=== PATIENT | female | born 1995 | race Caucasian/White ===

== ENCOUNTER 2020-05-25 13:29 | Emergency (ER) | payer SELFPAY ==
[2020-05-25 13:36] VITALS: BMI 39.4
[2020-05-25] MEDS ORDERED: SODIUM CHLORIDE 1,000 ML IV STA (14:28)
[2020-05-25] MEDS ORDERED: ONDANSETRON 4 MG/2 ML VIAL IVPUSH ONE (14:28)
[2020-05-25 14:47] LABS: BASO % 0.3 % (0-2.0); EOS % 2.7 % (0-4.5); HEMATOCRIT 41.5 % (32.4-45.2); HEMOGLOBIN 13.6 GM/dL (10.7-15.3); LYMPH % 13.6 % (8-40); MCH 28.1 pg (25.7-33.7); MCHC 32.8 g/dl (32.0-36.0); MEAN CELL VOLUME 85.6 fl (80-96); MEAN PLT VOLUME 9.6 fl (7.5-11.1); MONO % 5.1 % (3.8-10.2); NEUT % 78.3 % (42.8-82.8); PLATELET COUNT 256 K/MM3 (134-434); RBC 4.84 M/mm3 (3.60-5.2); RDW 13.7 % (11.6-15.6); WHITE BLOOD COUNT 12.5 K/mm3 (4.0-10.0)
[2020-05-25] MEDS ORDERED: ONDANSETRON *ODT* 4 MG TABLET SL ONE (14:54)
[2020-05-25] MEDS ORDERED: ONDANSETRON *ODT* 4 MG TABLET ONE (14:55)
[2020-05-25 15:01] LABS: EPI CELLS 23 /uL (0-25.1); HYALINE CASTS 0 /uL (0-3.1); URINE APPEARANCE TURBID; URINE BACTERIA 172 /uL (0-1359); URINE BILIRUBIN NEGATIVE (NEGATIVE); URINE COLOR ORANGE; URINE GLUCOSE (UA) NEGATIVE (NEGATIVE); URINE KETONE TRACE (NEGATIVE); URINE LEUK ESTERASE 2+ (NEGATIVE); URINE NITRITE NEGATIVE (NEGATIVE); URINE PROTEIN 2+ (NEGATIVE); URINE WBC 2023 /uL (0-25.8)
[2020-05-25 15:09] LABS: POTASSIUM 4.2 mmol/L (3.5-5.1)
[2020-05-25 15:11] LABS: CALCIUM 8.8 mg/dL (8.5-10.1)
[2020-05-25 15:12] LABS: BLOOD UREA NITROGEN 7.2 mg/dL (7-18)
[2020-05-25 15:15] LABS: CREATININE 0.6 mg/dL (0.55-1.3)
[2020-05-25 15:16] LABS: BILIRUBIN,TOTAL 0.4 mg/dL (0.2-1); TOT PROT 6.7 g/dl (6.4-8.2)
[2020-05-25 15:42] LABS: YEAST PRESENT (NEGATIVE)
[2020-05-25 15:43] LABS: URINE RBC 1234 /uL (0-23.9)
[2020-05-25] MEDS ORDERED: CEFTRIAXONE 1 GM in DEXTROSE 5%-WATER - 50 ML IVPB ONE (16:27)
[2020-05-25] MEDS ORDERED: CEFTRIAXONE 1 GM/50 ML BAG ONE (17:22)
[2020-05-25 17:39] VITALS: BP 122/74; PULSE 72; TEMP 98
== END 2020-05-25 17:48 | disposition home or self-care (01) ==
LOC: JER 13:29
PROC: 3E03329 Introduction of Other Anti-infective into Peripheral Vein, Percutaneous Approach (ICD-10-PCS; principal; 2020-05-25)
PROC: 3E033NZ Introduction of Analgesics, Hypnotics, Sedatives into Peripheral Vein, Percutaneous Approach (ICD-10-PCS; 2020-05-25)
PROC: 3E0337Z Introduction of Electrolytic and Water Balance Substance into Peripheral Vein, Percutaneous Approach (ICD-10-PCS; 2020-05-25)
DX: N39.0 Urinary tract infection, site not specified (principal)
CPT/HCPCS: 36415; 76817-TC; 80053; 81003; 84702; 85025; 86850; 86900; 86901; 87086; 99285-25; Q0162